=== PATIENT | male | born 1990 | race African-American/Black ===

== ENCOUNTER 2018-01-18 00:59 | Emergency (ER) | payer SELFPAY ==
[~2018-01-18] VITALS: Ht 182.9 cm; Wt 102.0 kg
[2018-01-18 01:03] VITALS: BP 136/66; PULSE 90; RESP 20; TEMP 98; O2SAT 98
[2018-01-18 01:07] VITALS: BP 141/65; PULSE 96; RESP 20; TEMP 98.2; O2SAT 100
--- NOTE | 2018-01-18 01:11 | PD ---
HPI Chief Complaint: Cold / Flu Symptoms Time Seen by Provider: 01:05 Travel History International Travel<30 days: No Contact w/Intl Traveler<30days: No Traveled to known affect area: No History of Present Illness HPI Patient has had a cough that originally was dry and nonproductive started approximately 2 weeks ago, and over the past 3 days the cough has become productive of yellowish sputum, and now the patient has started to develop sharp chest pain to his chest wall worse with coughing and moving. Feels better with resting. Patient denies any nausea vomiting diarrhea back pain headache neck pain abdominal pain. No known drug allergy but the patient is allergic to shrimp Past medical history significant for tonsillectomy and adenoid No significant past medical history Patient smokes about a quarter pack a day [facility] Social History Tobacco Use: No Allergies-Medications (Allergen,Severity, Reaction): Coded Allergies: shrimp (Verified Allergy, Intermediate, Rash, 01/18/18) Reported Meds & Prescriptions Reported Meds & Active Scripts Active Tessalon Perles (Benzonatate) 100 Mg Cap 200 Mg PO TID PRN 5 Days Zithromax Z-Joseph (Azithromycin) 250 Mg Dspk 250 Mg PO DIRECTED 500 MG (2 tabs) day 1, then 1 tab days 2-5. Proventil Hfa 6.7 GM Inh (Albuterol Sulfate) 90 Mcg/Act Aer 2 Puff INH Q4-6H PRN Review of Systems General / Constitutional: No: Fever Eyes: No: Visual changes HENT: No: Headaches Cardiovascular: No: Chest Pain or Discomfort Respiratory: Positive: Cough Gastrointestinal: No: Abdominal Pain Genitourinary: No: Dysuria Musculoskeletal: No: Pain Skin: No Rash Neurologic: No: Weakness Psychiatric: No: Depression Endocrine: No: Polydipsia Hematologic/Lymphatic: No: Easy Bruising Physical Exam Narrative GENERAL: SKIN: Warm and dry. HEAD: Atraumatic. Normocephalic. EYES: Pupils equal and round. No scleral icterus. No injection or drainage. ENT: No nasal bleeding or discharge. Mucous membranes pink and moist. NECK: Trachea midline. No JVD. CARDIOVASCULAR: Regular rate and rhythm. RESPIRATORY: No accessory muscle use. Clear to auscultation. Breath sounds equal bilaterally. Except for mild crackles at the base left lung GASTROINTESTINAL: Abdomen soft, non-tender, nondistended. MUSCULOSKELETAL: Extremities without clubbing, cyanosis, or edema. No obvious deformities. NEUROLOGICAL: Awake and alert. No obvious cranial nerve deficits. Motor grossly within normal limits. Five out of 5 muscle strength in the arms and legs. Normal speech. PSYCHIATRIC: Appropriate mood and affect; insight and judgment normal. Data Data Last Documented VS Orders Orders Electrocardiogram (01/18/18 01:05) Chest, Pa & Lat (01/18/18 01:05) Ketorolac Inj (Toradol Inj) (01/18/18 01:15) Ed Discharge Order (01/18/18 03:12) [facility] Medical Decision Making Medical Screen Exam Complete: Yes Emergency Medical Condition: Yes Medical Record Reviewed: Yes Interpretation(s) Pulse ox on room air with an excellent pleth wave reads 98-100 which is within normal limits and shows no evidence of hypoxemia EKG is a normal sinus rhythm, 91 bpm, normal intervals, no evidence of any ST elevation ME, patient has nonspecific ST-T wave changes on 3 and aVF Differential Diagnosis Bronchitis versus pneumonia versus pneumothorax versus chest wall Narrative Course Chest x-ray read by radiologist as no evidence of acute cardiopulmonary disease Diagnosis Primary Impression: Acute bronchitis Patient Instructions: Acute Bronchitis (GEN), General Instructions Scripts Benzonatate (Tessalon Perles) 100 Mg Cap 200 MG PO TID Y for COUGH for 5 Days, #15 CAP 0 Refills Prov: Steve Buitrago MD 01/18/18 Azithromycin (Zithromax Z-Joseph) 250 Mg Dspk 250 MG PO DIRECTED for Infection, #1 DSPK 0 Refills 500 MG (2 tabs) day 1, then 1 tab days 2-5. Prov: Steve Buitrago MD 01/18/18 Albuterol 6.7 GM Inh (Proventil Hfa 6.7 GM Inh) 90 Mcg/Act Aer 2 PUFF INH Q4-6H Y for SHORTNESS OF BREATH, #1 INHALER 0 Refills Prov: Steve Buitrago MD 01/18/18 Disposition: 01 DISCHARGE HOME Condition: Stable Steve Buitrago MD January 18, 2018 01:10
[2018-01-18] MEDS ORDERED: KETOROLAC TROMETHAMINE 60 MG/2 ML (IM) VIAL IM ONE (01:15)
--- NOTE | 2018-01-18 02:44 | RADRPT ---
EXAM DATE: 01/18/2018 2:35 AM EDT AGE/SEX: 27 years / Male INDICATIONS: Shortness of breath. CLINICAL DATA: This is the patient's initial encounter. Patient reports that signs and symptoms have been present for 1 day and indicates a pain score of 0/10. MEDICAL/SURGICAL HISTORY: None. None. COMPARISON: No prior [place] exams available for comparison. FINDINGS: PA and lateral views of the chest demonstrate the lungs to be symmetrically aerated without evidence of mass, infiltrate or effusion. The cardiomediastinal contours are unremarkable. Osseous structures are intact. CONCLUSION: No evidence of acute cardiopulmonary disease. Electronically signed by: Khurram Whitten MD 01/18/2018 2:43 AM EDT
[2018-01-18] MEDS ORDERED: BENZ100 PO (03:11)
[2018-01-18] MEDS ORDERED: ALBU6.7H INH (03:11)
[2018-01-18] MEDS ORDERED: ZITHTAB PO (03:11)
--- NOTE | 2018-01-18 13:50 | EKG ---
Date Performed: 01/18/2018 Time Performed: 01:03:19 PTAGE: 27 years EKG: Sinus rhythm NONSPECIFIC T-WAVE ABNORMALITY BORDERLINE ECG NO PREVIOUS TRACING DOCTOR: Tevin Bryan Interpretating Date/Time 01/18/2018 13:49:29
== END 2018-01-18 03:58 | disposition home or self-care (01) ==
LOC: NEPE 00:59
DX: J20.9 Acute bronchitis, unspecified (principal); F17.210 Nicotine dependence, cigarettes, uncomplicated; R94.31 Abnormal electrocardiogram [ECG] [EKG]
CPT/HCPCS: 71046; 93005; 96372; 99284; J1885